=== PATIENT | female | born 1995 | race Caucasian/White ===

== ENCOUNTER 2020-10-24 10:09 | Outpatient (CLI) | payer OTHER, SELFPAY ==
[2020-10-24 11:47] LABS: Free T4 Free Thyroxine 0.85 ng/mL (0.78-2.19)
[2020-10-24 21:54] LABS: Hemoglobin A1C 5.2 % (<5.7)
[2020-10-26 04:13] LABS: Insulin Level Total 11.8 uIU/mL (<=19.6)
[2020-10-26 12:41] LABS: DHEA-Sulfate 292 mcg/dL (18-391)
[2020-10-27 07:53] LABS: Progesterone 0.7 ng/mL (***); Prolactin 7.8 ng/mL (***)
[2020-10-27 13:22] LABS: Testosterone Total 31 ng/dL (2-45)
== END 2020-10-24 10:10 | disposition home or self-care (01) ==
LOC: ANHLAB 10:13
PROVIDERS: Visit Provider Nurse Practitioner
DX: N91.2 Amenorrhea, unspecified (principal); E28.2 Polycystic ovarian syndrome
CPT/HCPCS: 36415; 82627; 83036; 83525; 84144; 84146; 84403; 84439; 84443

== ENCOUNTER 2020-10-27 15:04 | Outpatient (CLI) | payer OTHER, SELFPAY ==
--- NOTE | ~2020-10-27 | US_ITS ---
EXAMINATION: US pelvic complete w TV DATE: 10/27/2020 15:52 INDICATION: Polycystic ovaries TECHNIQUE: Multiple transabdominal and endovaginal sonographic images of the pelvis were obtained. COMPARISON: None. FINDINGS: The uterus measures 6.8 x 2.9 x 3.4 cm. The endometrial complex measures 13 mm. The right o vary measures 2.8 x 2.2 x 1.9 cm. The left ovary measures 2.8 x 1.8 x 2.5 cm and contains small folli cles. There is normal vascular flow in the ovaries. There is no free fluid in the pelvis. IMPRESSION: 1. Unremarkable pelvic ultrasound. Reviewed, dictated and finalized at location A.
== END 2020-10-27 15:05 | disposition home or self-care (01) ==
LOC: ANHIMG 15:06
PROVIDERS: Visit Provider Nurse Practitioner
DX: N91.2 Amenorrhea, unspecified (principal)
CPT/HCPCS: 76830; 76856

== ENCOUNTER 2020-12-18 11:07 | Outpatient (CLI) | payer OTHER, SELFPAY ==
[2020-12-22 13:53] LABS: Progesterone 0.6 ng/mL (***)
== END 2020-12-18 11:08 | disposition home or self-care (01) ==
LOC: ANHLAB 11:10
PROVIDERS: Visit Provider Obstetrics & Gynecology Gynecology
DX: N91.2 Amenorrhea, unspecified (principal)
CPT/HCPCS: 36415; 84144

== ENCOUNTER 2021-01-13 10:54 | Outpatient (CLI) | payer OTHER, SELFPAY | END 2021-01-13 10:55 | disposition home or self-care (01) | LOC: ANHLAB 10:56 | PROVIDERS: Visit Provider Obstetrics & Gynecology Gynecology | DX: N91.2 Amenorrhea, unspecified (principal) | CPT/HCPCS: 36415; 83498 ==

== ENCOUNTER 2021-05-29 10:00 | Outpatient (RCR) | payer OTHER, SELFPAY ==
[2021-04-24 14:09] VITALS: BP_SYST 170
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
--- NOTE | 2021-05-15 09:38 | PCPTNOTE ---
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
--- NOTE | 2021-05-17 07:25 | PCPTNOTE ---
Patient called & cancelled scheduled appointment this date due to COVID-19 exposure.
--- NOTE | 2021-05-22 09:15 | PCPTNOTE ---
Patient did not show up for scheduled appointment this date. Attempted to call pt, but number on file is not a working number.
--- NOTE | 2021-05-25 09:43 | PCPTNOTE ---
Patient did not show up for scheduled appointment this date. Called & had to leave a message.
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
--- NOTE | 2021-05-29 10:23 | PCPTNOTE ---
Admitting Provider: Attending Provider: YENNY Olsen Patient:Denice Plummer Date of :1995 Physical Therapy Discharge Summary Patient has not returned for any further treatments since 05/10/2021, therefore she will be discharged at this time. Patient?s initial visit was on 04/24/2021 14:00 and she had a total of 4 visits with 5 missed visits. The goals have been not met due to limited therapy visits attended. Thank you for referring this patient to [facility]. Please review, sign, date and return this discharge summary LU. I have been updated about the patient's current status and I agree with discharge from the above service at this time. Referring Physician Date
== END 2021-05-30 09:33 | disposition home or self-care (01) ==
LOC: ANHPT 10:00
DX: M25.512 Pain in left shoulder (principal)
CPT/HCPCS: 97014; 97110; 97140; 97162; G0283

== ENCOUNTER 2023-01-28 15:09 | Emergency (ER) | payer OTHER, SELFPAY ==
--- NOTE | 2023-01-28 15:23 | ED.URI ---
HPI - URI/Sore Throat General Chief Complaint: Upper Respiratory Infection Stated Complaint: sore throat, ear pain,headache Source: patient and RN notes reviewed History of Present Illness HPI Narrative: 27 yo F presents to urgent care with complaints of sore throat, bilateral ear pain, and MEDINA since yesterday. Pt denies any fevers, chills, vomiting, diarrhea, chest pain, or SOB. Pt has not taken anything for her symptoms. Related Data Home Medications Medication Instructions Recorded Confirmed No Home Medications 01/28/23 01/28/23 Allergies Allergy/AdvReac Type Severity Reaction Status Date / Time No Known Allergies Allergy Verified 01/28/23 15:24 Review of Systems Review of Systems: Pertinent positives and pertinent negatives per HPI. [facility] Family History Family History (Updated 12/01/13 @ 08:01 by DOCTOR UNKNOWN) Other Cerebrovascular accident Diabetes mellitus Family history of arthritis Hypertension Social History Social History Smoking status: Never smoker Alcohol intake: never Comments At the time of my signature, I reviewed and agree with the nursing past medical, surgical, social, and family history. There is no relevant family history pertinent to the patient complaint. Exam Narrative: GENERAL: This is a well-nourished, well-developed patient, in no apparent distress. HEAD: normocephalic, atraumatic. EYES: Sclera clear/white. Vision is grossly intact. EARS: External ears normal, auditory canals clear and without drainage, TMs normal without perforation. Hearing grossly intact. NOSE: External nose normal with no obvious nasal discharge, nares without redness, no rhinorrhea. THROAT: Mucous membranes moist, posterior pharynx clear. NECK: Neck supple, non-tender without lymphadenopathy, masses or thyromegaly. CARDIOVASCULAR: Regular rate and rhythm without murmurs, gallops, or rubs. RESPIRATORY: Clear to auscultation. Breath sounds equal bilaterally. No wheezes, rales, or rhonchi. SKIN: warm, intact with no suspicious lesions or rash, good texture and turgor. NEURO: awake, alert, and oriented to person, place and time. There were no obvious focal neurologic abnormalities. Course Course Level of Care: Express Care Visit Vital Signs Vital signs: Vital Signs Temperature 99.3 F 01/28/23 15:25 Pulse Rate 97 01/28/23 15:25 Respiratory Rate 16 01/28/23 15:25 Blood Pressure 128/71 01/28/23 15:25 Pulse Oximetry 99 01/28/23 15:25 Oxygen Delivery Room Air 01/28/23 15:25 Temperature 99.3 F 01/28/23 15:25 Pulse Rate 97 01/28/23 15:25 Respiratory Rate 16 01/28/23 15:25 Blood Pressure 128/71 01/28/23 15:25 Pulse Oximetry 99 01/28/23 15:25 Oxygen Delivery Room Air 01/28/23 15:25 Reviewed MDM - URI/Sore Throat MDM Narrative Medical decision making narrative: Rapid strep is negative in the office; however we will send to the lab for confirmation; there is a small percentage chance that it can come back positive; if it is, we will call you in 2-3days; and your prescription will be call in to your pharmacy. However, there is NO indication for antibiotic at this time. -Increase your fluids and Vitamin C. -Oral rinses such as: Salt water gargles and/or may use topical anesthetic (eg. Chloraseptic spray) or lozenges to relieve dryness or throat pain. -Take tylenol and ibuprofen as needed for pain and fever as directed. -Frequent hand washing or hand telegraphic service dispatcher is one of the best ways to prevent spread of infection. -Follow up with primary care provider in 2-3 days if condition is not improving or seek ER visit if your child starts breathing fast/has trouble breathing, is not drinking enough fluids, muffle voice, difficulty opening the mouth or will not wake up or will not interact with you. Differential Diagnosis Differential diagnosis: Likely upper respiratory infection, viral infection and pharyngitis Lab Data Attestation: I i
[2023-01-28 15:25] VITALS: BP 128/71; PULSE 97; RESP 16; TEMP 37.4; O2SAT 99
== END 2023-01-28 15:49 | disposition home or self-care (01) ==
PROVIDERS: Emergency Provider Nurse Practitioner Family
DX: J02.9 Acute pharyngitis, unspecified (principal)
CPT/HCPCS: 87081; 87880; 99213; G0463

== ENCOUNTER 2023-03-01 16:36 | Emergency (ER) | payer OTHER, SELFPAY ==
--- NOTE | 2023-03-01 16:39 | ED.URI ---
HPI - URI/Sore Throat General Chief Complaint: Upper Respiratory Infection Stated Complaint: Sore Throat Time Seen by Provider: 03/01/23 16:39 Source: patient Mode of arrival: ambulatory Limitations: no limitations History of Present Illness HPI Narrative: Denice is a 27-year-old female patient presenting to the clinic today with complaints of a sore throat since this morning. She reports she has also had some body aches and a headache. No known fever or chills. Denies any URI symptoms. MD elicited complaint: sore throat and nasal congestion Related Data Home Medications Medication Instructions Recorded Confirmed No Home Medications 01/28/23 03/01/23 Allergies Allergy/AdvReac Type Severity Reaction Status Date / Time No Known Allergies Allergy Verified 03/01/23 16:46 Review of Systems Review of Systems: Pertinent positives per HPI. Patient denies any fever, chills, rash, headache, visual changes, dizziness, cough, shortness of breath, chest pain, palpitations, nausea, vomiting, diarrhea, constipation, abdominal pain, or any urinary issues. [facility] Family History Family History Other Cerebrovascular accident Diabetes mellitus Family history of arthritis Hypertension Social History Social History Smoking status: Never smoker Alcohol intake: never Comments At the time of my signature, I reviewed and agree with the nursing past medical, surgical, social, and family history. There is no relevant family history pertinent to the patient complaint. Exam Narrative: General: Well-developed, morbidly obese, in no apparent distress Head: Normocephalic, atraumatic Eyes: Pupils equally round and reactive to light bilaterally, EOM intact, sclera and conjunctive clear, no discharge, lids normal Ears: TMs intact and clear, ear canals clear, no drainage, grossly hearing normal. Nose: Nares patent, clear discharge, no inflammation, no sinus tenderness. Mouth: Oral pharynx red without lesions or masses, good dentition, MMM. Neck: Supple, trachea midline, no enlargement of anterior or posterior cervical nodes, no thyroid masses or goiter palpable. Cardio: Regular rate and rhythm, s1 and s2 normal, no murmur appreciated. Resp: Clear to auscultation bilaterally, no rhonchi, rales, wheezing or rubs Course Course Emergency Course: Portions of this record may have been created with voice recognition software. Level of Care: Express Care Visit Vital Signs Vital signs: Vital signs reviewed MDM - URI/Sore Throat MDM Narrative Medical decision making narrative: At the time of visit patient is resting comfortably on the exam table. COVID and strep test were negative in the clinic today. We will send strep for culture. Supportive measures were discussed with the patient she voiced understanding discharge instructions agrees to treatment plan. Differential Diagnosis Differential diagnosis: Likely upper respiratory infection, otitis media, sinusitis, viral infection, bronchitis, influenza, pharyngitis and other (COVID) Discharge Plan Discharge Clinical Impression: Pharyngitis Qualifiers: Pharyngitis/tonsillitis etiology: unspecified etiology Qualified Code(s): J02.9 - Acute pharyngitis, unspecified Patient Disposition: Home, Self-Care Condition: Stable Instructions: Antibiotic Form, Pharyngitis (ED) Additional Instructions: COVID and strep test were negative in the clinic today. We will send strep for culture if this comes back positive we will contact him place you on antibiotics at that time. Increase fluids and stay well hydrated Tylenol/motrin for pain/fever Flonase and OTC antihistamines as directed Vicks vapor rub to open sinuses Sinus rinses for congestion Cepacol spray, cough drops, throat lozenges, warm tea with honey/lemon, gargle salt water to soothe
[2023-03-01 16:48] VITALS: BP 149/100; PULSE 99; RESP 16; TEMP 36.9; O2SAT 99
== END 2023-03-01 17:13 | disposition home or self-care (01) ==
PROVIDERS: Emergency Provider Nurse Practitioner Family
DX: J02.9 Acute pharyngitis, unspecified (principal); Z20.822 Contact with and (suspected) exposure to COVID-19
CPT/HCPCS: 87081; 87426; 87880; 99213; C9803; G0463

== ENCOUNTER 2023-04-22 12:24 | Emergency (ER) | payer OTHER, SELFPAY ==
[2023-04-22 12:44] VITALS: BP 151/91; PULSE 113; RESP 16; TEMP 36.9; O2SAT 99
--- NOTE | 2023-04-22 12:50 | ED.URI ---
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 SHE DENIES TAKING ANY [id number] MEDICATIONS. SHE DENIES FEVER, REPORTS BODY ACHES. MD elicited complaint: cough Related Data Allergies Allergy/AdvReac Type Severity Reaction Status Date / Time No Known Allergies Allergy Verified 03/01/23 16:46 Review of Systems Review of Systems: CONSTITUTIONAL: Reports malaise, fatigue. Denies chills, sweats, or fever. EYES: Denies visual changes, redness, or discharge. ENT: Reports rhinorrhea, congestion, sinus pain, otalgia and sore throat. CARDIOVASCULAR: Denies chest pain, palpitations, or edema. RESPIRATORY: Reports cough and chest congestion. Denies dyspnea. GASTROINTESTINAL: Denies abdominal pain, nausea, vomiting, diarrhea SKIN: Denies rash or itching. MUSCULOSKELETAL: [place] myalgia. NEUROLOGIC: Denies headache. All systems reviewed & are unremarkable except as noted in HPI and below PMFSH Family History Family History Other Cerebrovascular accident Diabetes mellitus Family history of arthritis Hypertension Social History Social History Smoking status: Never smoker Alcohol intake: never Comments At time of signature, agree with nursing past medical, surgical, social and family history. There is no relevant family history pertinent to the presenting complaint Exam Narrative: GENERAL: Well-appearing, well-nourished, and in no acute distress. HEAD: Normocephalic EYES: PERRLA, conjunctivae clear ENT: Nares clear. Mucous membranes moist. TM pearly ballesteros with dull light reflex bilaterally; no tragal tenderness. Oropharynx not erythematous without lesions. Tonsils not enlarged and without exudate, no drooling, no hoarseness, no trismus, uvula midline. NECK: Supple. No lymphadenopathy CHEST: Scattered wheeze, otherwise clear to auscultation, breath sounds equal. No rhonchi, rales, or stridor. No respiratory distress, speaks in full sentences. Cough noted HEART: Regular rate and rhythm. No murmur heard. SKIN: Warm, dry, no rash. NEURO: Alert and oriented x3. PSYCH: Normal mood and affect Course Course Emergency Course: Patient is aware of diagnosis, understands and agrees to treatment plan. Anticipatory guidance given. Patient agrees to follow-up as directed and is aware of reasons to seek care at the emergency department. Portions of this record may have been created with voice recognition software Level of Care: Express Care Visit Vital Signs Vital signs: Vital Signs Temperature 98.5 F 04/22/23 12:44 Pulse Rate 113 H 04/22/23 12:44 Respiratory Rate 16 04/22/23 12:44 Blood Pressure 151/91 H 04/22/23 12:44 Pulse Oximetry 99 04/22/23 12:44 Temperature 98.5 F 04/22/23 12:44 Pulse Rate 113 H 04/22/23 12:44 Respiratory Rate 16 04/22/23 12:44 Blood Pressure 151/91 H 04/22/23 12:44 Pulse Oximetry 99 04/22/23 12:44 Reviewed. MDM - URI/Sore Throat MDM Narrative Medical decision making narrative: Differential diagnosis considered: Stack virus, strep pharyngitis, allergic rhinitis, upper respiratory tract infection, sinusitis, rhinosinusitis, nasopharyngitis. viral pharyngitis, otitis media, otitis externa, pneumonia, bronchitis, viral cough syndrome, viral syndrome, and influenza. Exam findings show no acute concerns or changes; patient is non-toxic appearing and is in no distress. Patient is appropriate for outpatient treatment and follow-up. Lab Data Attestation: I reviewed the patient's l
== END 2023-04-22 13:07 | disposition home or self-care (01) ==
PROVIDERS: Emergency Provider Nurse Practitioner
DX: J10.1 Influenza due to other identified influenza virus with other respiratory manifestations (principal); Z20.822 Contact with and (suspected) exposure to COVID-19
CPT/HCPCS: 87081; 87426; 87804; 87880; 99213; C9803; G0463

== ENCOUNTER 2023-04-26 15:43 | Emergency (ER) | payer OTHER, SELFPAY ==
--- NOTE | 2023-04-26 15:53 | ED.GENADULT ---
HPI - General Adult General Chief complaint: Urogenital-Female Stated complaint: urinary issue Time Seen by Provider: 04/26/23 15:53 Source: patient Mode of arrival: ambulatory Limitations: no limitations History of Present Illness HPI narrative: 27-year-old female presents to [facility] today with complaints of UTI symptoms. Patient reports that she has been having pain when she pees and occasional urinary frequency and urgency for the last couple days. Patient denies fevers chills body aches. Patient states that she has a little bit of suprapubic tenderness. Denies ever having sexual activity. Denies any vaginal discharge or vaginal itching. Patient reports she has not taken anything for the discomfort. Related Data Allergies Allergy/AdvReac Type Severity Reaction Status Date / Time No Known Allergies Allergy Verified 04/26/23 16:02 Review of Systems Review of Systems: CONSTITUTIONAL: Denies fever, chills, or sweats. EYES: Denies visual changes, redness, or discharge. ENT: Denies rhinorrhea, congestion, sore throat, or otalgia. CARDIOVASCULAR: Denies chest pain, palpitations, or edema. RESPIRATORY: Denies cough or dyspnea. GASTROINTESTINAL: Denies abdominal pain, nausea, vomiting, or diarrhea. GENITOURINARY: Positive dysuria, frequency and urgency, and denies hematuria. Patient reports strong odor from her urine. SKIN: Denies rash or itching. MUSCULOSKELETAL: Denies back pain, joint pain, or myalgia. NEUROLOGIC: Denies headache, numbness, or weakness. PSYCHIATRIC: Denies anxiety or depression. [facility] Past Medical History Medical History (Updated 04/26/23 @ 16:30 by TAMERA Hua) Polycystic ovarian disease Surgical History Surgical History (Updated 04/26/23 @ 15:54 by TAMERA Hua) History of placement of ear tubes Family History Family History Other Cerebrovascular accident Diabetes mellitus Family history of arthritis Hypertension Social History Social History Smoking status: Never smoker Alcohol intake: never Comments At the time of my signature I agree with nursing past medical history, surgical, social, and family history. There is no relevant family history pertinent to the presenting complaint. Exam Narrative: GENERAL: Well-appearing, well-nourished, and in no acute distress. HEAD: Normocephalic, atraumatic. EYES: PERRLA and EOMI. ENT: Nares clear, no rhinorrhea or epistaxis. Mucous membranes moist. NECK: Supple. No lymphadenopathy CHEST: Clear to auscultation. No respiratory distress. HEART: Regular rate and rhythm. No murmur heard. Normal peripheral pulses. ABDOMEN: Soft, obese, nontender in all 4 quadrants, nondistended, normal active bowel sounds. Suprapubic tenderness on palpation. EXTREMITIES: Normal range of motion. No edema. SKIN: Warm, dry, no rash. NEURO: No focal deficits. Alert and oriented x3. Course Course Level of Care: Express Care Visit Vital Signs Vital signs: Vital Signs Temperature 36.9 C 04/26/23 16:10 Pulse Rate 81 04/26/23 16:10 Respiratory Rate 16 04/26/23 16:10 Blood Pressure 126/75 04/26/23 16:10 Pulse Oximetry 99 04/26/23 16:10 Oxygen Delivery Room Air 04/26/23 16:10 Temperature 36.9 C 04/26/23 16:10 Pulse Rate 81 04/26/23 16:10 Respiratory Rate 16 04/26/23 16:10 Blood Pressure 126/75 04/26/23 16:10 Pulse Oximetry 99 04/26/23 16:10 Oxygen Delivery Room Air 04/26/23 16:10 Vital signs reviewed Medical Decision Making MDM Narrative Medical decision making narrative: Patient's urine dipstick was negative for nitrites and leukocytes. However due to patient's urinary symptoms of suprapubic tenderness, urinary burning, frequency and urgency patient is being prescribed Macrobid for 3 days. Patient instructed that urine dip stick will be sent to the lab for culture a
[2023-04-26 16:10] VITALS: BP 126/75; PULSE 81; RESP 16; TEMP 36.9; O2SAT 99
== END 2023-04-26 16:36 | disposition home or self-care (01) ==
PROVIDERS: Emergency Provider Nurse Practitioner Family
DX: R30.0 Dysuria (principal); E28.2 Polycystic ovarian syndrome
CPT/HCPCS: 81003; 87086; 99213; G0463

== ENCOUNTER 2023-07-14 10:47 | Emergency (ER) | payer OTHER, SELFPAY ==
[2023-07-14 10:53] VITALS: BP 129/90; PULSE 99; RESP 16; TEMP 37.1; O2SAT 100
--- NOTE | 2023-07-14 11:24 | ED.URI ---
HPI - URI/Sore Throat General Chief Complaint: Upper Respiratory Infection Stated Complaint: Flu Test;Covid Test Time Seen by Provider: 07/14/23 11:03 Source: patient and RN notes reviewed Mode of arrival: ambulatory Limitations: no limitations History of Present Illness HPI Narrative: Patient presents today with a 1 week history of cough, congestion, chills, hoarse voice. Reports hoarseness has improved today. She has tried Tylenol and ibuprofen without relief. Also reports a nose bleed during the week. Related Data Allergies Allergy/AdvReac Type Severity Reaction Status Date / Time No Known Allergies Allergy Verified 04/26/23 16:02 Review of Systems Review of Systems: CONSTITUTIONAL: Denies body aches, fever, or sweats.+ chills EYES: Denies visual changes, redness, or discharge. ENT: Denies rhinorrhea, sore throat, or otalgia.+ congestion, hoarseness, epistaxis CARDIOVASCULAR: Denies chest pain, palpitations, or edema. RESPIRATORY: Denies dyspnea.+ cough GASTROINTESTINAL: Denies abdominal pain, nausea, vomiting, or diarrhea. GENITOURINARY: Denies dysuria or hematuria. SKIN: Denies rash, itching, or wounds. MUSCULOSKELETAL: Denies back pain, joint pain, or myalgia. NEUROLOGIC: Denies headache, numbness, tingling, or weakness. PSYCH: Denies depression or anxiety. PMFSH Past Medical History Medical History Polycystic ovarian disease Surgical History Surgical History History of placement of ear tubes Family History Family History Other Cerebrovascular accident Diabetes mellitus Family history of arthritis Hypertension Social History Social History Smoking status: Never smoker Alcohol intake: never Comments At time of signature, I have reviewed and agree with nursing past medical, surgical, social and family history unless otherwise noted. Please see nursing chart for further information. There is no relevant family history pertinent to the presenting complaint Exam Narrative: GENERAL: Well-appearing, well-nourished, and in no acute distress. HEAD: Normocephalic, atraumatic. EYES: EOMI. No redness or drainage. Conjunctivae normal. ENT: Mucous membranes pink and moist. Nares mildly congested. No rhinorrhea. TMs normal bilaterally. Throat normal. Uvula midline. NECK: Normal AROM. Supple. No lymphadenopathy. CHEST: No respiratory distress. Clear to auscultation. HEART: Regular rate and rhythm. No murmur appreciated. EXTREMITIES: Normal range of motion. No edema. SKIN: Warm, dry, no rash. Capillary refill normal. Normal skin turgor. NEURO: No focal deficits. Alert and oriented x3. Gait steady. PSYCH: Normal affect. No signs of depression or anxiety. Course Course Level of Care: Express Care Visit Vital Signs Vital signs: Vital Signs Temperature 98.7 F 07/14/23 10:53 Pulse Rate 99 07/14/23 10:53 Respiratory Rate 16 07/14/23 10:53 Blood Pressure 129/90 07/14/23 10:53 Pulse Oximetry 100 07/14/23 10:53 Oxygen Delivery Room Air 07/14/23 10:53 Temperature 98.7 F 07/14/23 10:53 Pulse Rate 99 07/14/23 10:53 Respiratory Rate 16 07/14/23 10:53 Blood Pressure 129/90 07/14/23 10:53 Pulse Oximetry 100 07/14/23 10:53 Oxygen Delivery Room Air 07/14/23 10:53 Reviewed MDM - URI/Sore Throat MDM Narrative Medical decision making narrative: Influenza and COVID negative. Symptoms likely viral in etiology. Discussed [id number] medication use and duration of illness. Anticipatory guidance given. No prescription medications indicated at this time. Differential Diagnosis Differential diagnosis: Likely upper respiratory infection, sinusitis, viral infection, bronchitis, influenza and other (COVID-
== END 2023-07-14 11:31 | disposition home or self-care (01) ==
PROVIDERS: Emergency Provider Nurse Practitioner
DX: J06.9 Acute upper respiratory infection, unspecified (principal); E28.2 Polycystic ovarian syndrome
CPT/HCPCS: 87426; 87804; 99213; G0463

== ENCOUNTER 2024-06-08 12:34 | Emergency (ER) | payer OTHER, SELFPAY ==
[2024-06-08 13:12] VITALS: BP 174/97; PULSE 113; RESP 16; TEMP 36; O2SAT 99
--- NOTE | 2024-06-08 13:52 | ED.URI ---
HPI - URI/Sore Throat General Chief Complaint: Upper Respiratory Infection Stated Complaint: Congestion, sore throat, chills Time Seen by Provider: 06/08/24 13:49 Source: patient, RN notes reviewed and old records reviewed Mode of arrival: ambulatory Limitations: no limitations History of Present Illness HPI Narrative: 28 year old female who presents to [facility] care with complaints of congestion,headache, body aches and sore throat and some chills that started yesterday. Patient reports that she has had known exposure to COVID. Patient reports that she has raken some Tylenol for her symptoms. Patient states that she doesn't know of any fevers, denies any shortness of breath, MD elicited complaint: sore throat, nasal congestion and other (chills) Onset (ago): day(s) (since yesterday) Pain scale (0-10): 5 Description of mucous: clear Able to tolerate fluids by mouth: Yes Treatments prior to arrival: acetaminophen Related Data Home Medications ?Medication ?Instructions ?Recorded ?Confirmed ?Last Taken ?Type No Home Medications 06/08/24 06/08/24 Unknown History Allergies Allergy/AdvReac Type Severity Reaction Status Date / Time No Known Allergies Allergy Verified 06/08/24 13:08 Review of Systems Review of Systems: CONSTITUTIONAL:reports malaise,reports chills, sweats, no fever. EYES: Denies visual changes, redness, or discharge. ENT: Reports rhinorrhea, congestion, no sinus pain, no otalgia and positive for sore throat. CARDIOVASCULAR: Denies chest pain, palpitations, or edema. RESPIRATORY: Reports cough.? Denies dyspnea. GASTROINTESTINAL: Denies abdominal pain, nausea, vomiting, diarrhea SKIN: Denies rash or itching. MUSCULOSKELETAL:reports myalgia. NEUROLOGIC: positive for headache. All systems reviewed & are unremarkable except as noted in HPI and below PMFSH Past Medical History Medical History Polycystic ovarian disease Surgical History Surgical History History of placement of ear tubes Family History Family History Other Cerebrovascular accident Diabetes mellitus Family history of arthritis Hypertension Social History Social History Smoking status: Never smoker Alcohol intake: never Comments At time of signature, agree with nursing past medical, surgical, social and family history. There is no relevant family history pertinent to the presenting complaint Exam Narrative: GENERAL: Well-appearing, well-nourished, obese and in no acute distress. HEAD: Normocephalic EYES: PERRLA, conjunctivae clear ENT: Nares clear, turbinates edematous and erythematous, clear discharge. Mucous membranes moist. TM pearly ballesteros with dull light reflex bilaterally; no tragal tenderness. Oropharynx erythematous without lesions. Tonsils not enlarged and without exudate, no drooling, no hoarseness, no trismus, uvula midline.post nasal drainage NECK: Supple. No lymphadenopathy CHEST: Clear to auscultation, breath sounds equal. No wheezing, rhonchi, rales, or stridor. No respiratory distress, speaks in full sentences.SAO2 99% on room air HEART: Regular rate and rhythm. No murmur heard. SKIN: Warm, dry, no rash. NEURO: Alert and oriented x3. PSYCH: Normal mood and affect Course Course Emergency Course: Patient is aware of diagnosis, understands and agrees to treatment plan.? Anticipatory guidance given.? Patient agrees to follow-up as directed and is aware of reasons to seek care at the emergency department. Portions of this record may have been created with voice recognition software Level of Care: Express Care Visit Vital Signs Vital signs: Vital Signs Temperature 36.0 C L 06/08/24 13:12 Pulse Rate 113 H 06/08/24 13:12 Respiratory Rate 16 06/08/24 13:12 Blood Pressure 174/97 H 06/08/24 13:12 Pulse Oximetry 99 06/08/24 13:12 Temperature 36.0 C L 06/08/24 13:12 Pulse Rate 113 H 06/08/24 13:12 Respiratory Rate 16 06/08/24 13:12 Blood Pressure 174/97 H 06/08/24 13:12 Pulse Oximetry 99 06/08/24 13:12 Reviewed MDM - URI/Sore Throat MDM Narrative Medical decision making narrative: Differential diagnosis considered: Stack virus, strep pharyngitis, allergic rhinitis, upper respiratory tract infection, sinusitis, rhinosinusitis, nasopharyngitis. viral pharyngitis, otitis media, otitis externa, pneumonia, bronchitis, viral cough syndrome, viral syndrome, and influenza.? Exam findings show no acute concerns or changes; patient is non-toxic appearing and is in no distress.? Patient is appropriate for outpatient treatment and follow-up. Differential Diagnosis Differential diagnosis: Likely upper respiratory infection, sinusitis, viral infection, influenza, pharyngitis and other (COVIID) Medical Records Attestation: I reviewed the patient's medical records. Lab Data Attestation: I reviewed the patient's lab results. Lab results narrative: Influenza A negative, Influenza B negative, COVID antigen negative Labs: Lab Results 06/08/24 Range/Units 13:57 POC Influenza A Ag Negative (Negative) POC Influenza B Ag Negative (Negative) POC SARS CoV-2 Ag Negative (Negative) reviewed Critical Care Time Critical Care Time Critical Care Time: No Discharge Plan Discharge Clinical Impression: Exposure to COVID-19 virus Patient Disposition: Home, Self-Care Condition: Stable Instructions: How to Recover from COVID-19 at Home (ED) Additional Instructions: Increase fluids especially juices and water [id number] cough and cold medicine of your choice for your symptoms Zyrtec, Claritin or Neda daily heat to the face 20-30 minutes 4-6 times a day for pain Salt water gargles, throat lozenges or throat sprays as desired Tylenol or ibuprofen for any fever pain recommend you retest tomorrow since your test was negative today; you have known exposure to COVID If your symptoms persist, change or worsen significantly before you can contact your personal physician then please, without delay, go to the emergency department for further evaluation. Follow-up with PCP in 7-10 days or sooner if needed Follow up with PCP soon in regards to your blood pressure which is elevated above threshold for referral. Blood pressure above 120/80 may indicate pre-hypertension. 174/97 Patient Language: Cypriot Prescriptions: No Action No Home Medications Follow-up/Referrals: UNKNOWN,DOCTOR [Primary Care Provider] - Stand Alone Forms: Work/School Release IP Time of Disposition: 14:09 Quality Alida Coma Scale Eyes: Open Verbal: Oriented and Alert Motor: Follows Commands Alida Coma Total Score: 15
[2024-06-08 13:59] LABS: EDCOVIDSCREEN Negative (Negative); EDINFLUASCREEN Negative (Negative); EDINFLUBSCREEN Negative (Negative)
== END 2024-06-08 14:27 | disposition home or self-care (01) ==
PROVIDERS: Emergency Provider Registered Nurse
DX: J02.9 Acute pharyngitis, unspecified (principal); Z20.822 Contact with and (suspected) exposure to COVID-19; E28.2 Polycystic ovarian syndrome
CPT/HCPCS: 87426; 87804; 99212; G0463